=== PATIENT | female | born 1955 | race Caucasian/White ===

== ENCOUNTER 2023-12-21 12:03 | Outpatient (REF) | payer MEDICARE, SELFPAY ==
--- NOTE | ~2023-12-21 | XR_ITS ---
EXAMINATION: XR KNEE, LEFT XR KNEE AP STANDING CLINICAL INFORMATION: Left knee pain COMPARISON: None TECHNIQUE: Lateral axial views of the left knee were obtained. AP bilateral standing view of the knees was obtained. FINDINGS: There is bony demineralization. The bilateral lateral and medial joint space compartments are well-maintained, as is the left patellofemoral compartment. There is mild peripheral osteophyte formation of the bilateral medial joint space compartments. There is mild peripheral osteophyte formation of the left femoral joint space compartment. No fracture or dislocation is seen. No varus or valgus configuration is seen bilaterally. There are loose bodies noted within the posterior left knee joint space. There is no left knee joint effusion. XR/XR knee LT 3V IMPRESSION: 1. There is mild osteoarthritic change of the medial and patellofemoral joint space compartments of the left knee. 2. Small loose bodies are seen posteriorly within the left knee joint space. 3. There is mild osteoarthritic change of the medial joint space compartment of the right knee. Electronically signed by: Amarjit High MD 01/19/2024 08:12 PM EDT
== END 2023-12-21 12:04 | disposition home or self-care (01) ==
LOC: HO.HOSX 12:03
PROVIDERS: Visit Provider Orthopaedic Surgery
DX: M25.562 Pain in left knee (principal); M17.12 Unilateral primary osteoarthritis, left knee
CPT/HCPCS: 20610; 73562; 99202; J0665; J1100

== ENCOUNTER 2023-12-21 12:43 | Outpatient (AMB) | payer MEDICARE, SELFPAY ==
[2023-12-21 12:57] VITALS: BMI 35.5
--- NOTE | 2023-12-21 12:57 | MHC.OFFVIS ---
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 Patient reports that she has had pain in the left knee for about 1 year now. She had an injection done in February in the left knee which did help. She explains that she has a pain in the joing as well was a muscle pain along the medial aspect of the pain. She takes Tylenol which does help temporarily. Pain increases with prolonged standing and walking. 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 Patient reports that she has had pain in the left knee for about 1 year now. She had an injection done in February in the left knee which did help. She explains that she has a pain in the joint as well was a muscle pain along the medial aspect of the pain. She takes Tylenol which does help temporarily. Pain increases with prolonged standing and walking. She can walk for long distances but is uncomfortable. The last injection she had lasted about 6 months. Physical Exam Vital Signs: BMI result Body Mass Index 35.5 Extrem Other: Mild effusion 5-125 deg motion ttp medial joint line Office Procedures Joint Injection/Aspiration Joint Injection/Aspiration Details: Injected 1 mL of Decadron and 3 mL 1% lidocaine and 3 mL of 0.25% Marcaine. Site was prepped using aseptic technique. Patient tolerated the procedure well. Primary Site: left knee Approach Used: anterolateral Coding 74696 - Large joint Procedure code (CPT) selection complete Results Reviewed Results Reviewed: Injected 1 mL of Decadron and 3 mL 1% lidocaine and 3 mL of 0.25% Marcaine. Site was prepped using aseptic technique. Patient tolerated the procedure well. Moderate tibiofemoral OA< severe PF OA. Assessment & Plan Assessment & Plan (1) Arthritis of left knee: Code(s): M17.12 - Unilateral primary osteoarthritis, left knee Category: Medical Plan: Medial and anterior compartment OA that is limiting. She experienced significant improvement after he last injection and we injected her left knee. She can follow up in 3 months or sooner if pain persists and we will consider DUARTE. Orders: Orders XR knee LT 3V Today M25.562 - Pain in left knee Coding Level of Care Code New Pt Level 3 (18782) Diagnoses Arthritis of left knee M17.12 CPT Codes Coding - 35058 Large joint: 79784 - Large joint ([id number])
== END 2023-12-21 13:31 | disposition home or self-care (01) ==
PROVIDERS: PCP Internal Medicine; Visit Provider Orthopaedic Surgery
DX: M17.12 Unilateral primary osteoarthritis, left knee (principal)
CPT/HCPCS: 20610; 99203

== ENCOUNTER 2024-07-07 10:28 | Outpatient (AMB) | payer MEDICARE, SELFPAY ==
--- NOTE | 2024-07-07 10:29 | MHC.OFFVIS ---
Intake Visit Reasons: OV- LT Knee OA Intake Note: Gela is a 69 year old female who presents today for a follow up of her Left Knee OA. Last injection was administered to the left knee on 12/21/23. Patient reports that she is not looking for another injection today. She explains that her pain is in the posterior aspect of the knee which radiates from the left side of her lower back. Denies numbness and tingling. Has not tried PT. Allergies No Known Allergies Allergy (Verified 07/07/24 10:34) HPI HPI OV- LT Knee OA: Details: Gela is a 69 year old female who presents today for a follow up of her Left Knee OA. Last injection was administered to the left knee on 12/21/23. Patient reports that she is not looking for another injection today. She explains that her pain is in the posterior aspect of the knee which radiates from the left side of her lower back. Denies numbness and tingling. Physical Exam Extrem Other: ttp medial and distal hamstring. No knee pain with palpation or ROM Assessment & Plan Assessment & Plan (1) Arthritis of left knee: Code(s): M17.12 - Unilateral primary osteoarthritis, left knee Category: Medical Plan: Question hamstring/adductor pain vs atypical knee pain. Her knee feels better after most recent injection. Would like to try PT. No additional intervention warranted. Coding Level of Care Code Est Pt Level 3 (40597) Diagnoses Arthritis of left knee M17.12
--- OUTSIDE RECORDS SUMMARY | 2024-07-07 12:11 | XMS_ITS | Clinical Summary ---
Author Organization [facility] Address [address] [place] [address] Care Team Providers Care Director Zone Name Role Phone Mina Gonzalez MD Primary Care Provider Social History Tobacco Use Types Packs/Day Years Used Date Smoking Tobacco: Never Assessed Comments Unknown Sex and Gender Information Value Date Recorded Sex Assigned at Not on file Legal Sex Female 4:20 AM EST Gender Identity Not on file Sexual Orientation Not on file Last Filed Vital Signs Vital Sign Reading Time Taken Comments Blood Pressure - - Pulse - - Temperature - - Respiratory Rate - - Oxygen Saturation - - Inhaled Oxygen Concentration - - Weight 86.1 kg (189 lb 12.8 oz) 12/02/2022 8:44 AM EDT Height 144.8 cm (4' 9 ) 12/02/2022 8:44 AM EDT Body Mass Index 41.07 12/02/2022 8:44 AM EDT Plan of Treatment Health Maintenance Due Date Last Done Comments DTaP,Tdap,and Td Vaccines (1 - Tdap) 01/18/1972 Pneumococcal Vaccine: 50+ Years (1 of 1 - PCV) 2003 Zoster Vaccines (1 of 2) 2003 RSV Immunization Patients 60 + Years Old (1 - Risk 60-74 years 1-dose series) 2013 Cholesterol Screening (Lipid Panel) 04/13/2022 Colorectal Cancer Screening: Colonoscopy 04/13/2022 Depression Screening 04/13/2022 Falls Risk Assessment 04/13/2022 Hepatitis C Screening 04/13/2022 Osteoporosis Screening (Bone Density Screening) 04/13/2022 Social Influencers of Health Screening 04/13/2022 Hypertension/CHF/CAD Annual BMP Blood Test 06/25/2023 COVID-19 Vaccine ( - 2023-2 5 season) 2024 Influenza Vaccine (#1) 2024 Breast Cancer Screening 03/12/2024 03/12/20, 01/24/2021, 04/21/2018 HIB Vaccines Aged Out No longer eligi ble based on patient's age to complete this topic HPV Vaccines Aged Out No longer eligi ble based on patient's age to complete this topic Hepatitis A Vaccines Aged Out No long er eligible based on patient's age to complete this topic Hepatitis B Vaccines Aged Out No long er eligible based on patient's age to complete this topic IPV Vaccines Aged Out No longer eligi ble based on patient's age to complete this topic MMR Vaccines Aged Out No longer eligi ble based on patient's age to complete this topic Meningococcal ACWY Vaccine Aged Out N o longer eligible based on patient's age to complete this topic Meningococcal B Vacine Aged Out No lo nger eligible based on patient's age to complete this topic RSV Immunization Patients Under 20 months Aged Out No longer eligible b ased on patient's age to complete this topic Varicella Vaccines Aged Out No longer eligible based on patient's age to complete this topic Procedures Procedure Name Priority Date/Time Associated Diagnosis Comments [facility] SCREENING DIGITAL Routine 03/12/2022 4:34 PM EDT Encounter for screening mammogram for malignant neoplasm of breast from Last 3 Months or Most Recently Relevant to Health Maintenance Results * [facility] SCREENING DIGITAL (03/12/2022 4:34 PM EDT) Anatomical Region Laterality Modality Mammography 03/12/2022 7:24 AM EDT Narrative 03/12/2022 4:34 PM EDT [facility] Diagnostic Imaging Department [address] [place] [id number] Patient: ??LYDIA CORBETT ?/Age/Sex: 1955 - 67 - F Unit#: ??[id number] ? Location/Status: ??SPDIMAM/REG CLI ? Mnemonic/Ordering Site: ??DIGSC/SPMAM Ordering Physician: ??MINA GONZALEZ MD Basil Screening Digital - 03/12/22807 History: Bilateral breast cancer screening. Technique: ??Digital mammography. Conventional CC and MLO projections with tomosynthesis MLO views and computer aided detection. Comparison: [facility] 01/24/2021, dating back to 04/17/2011. Findings: ?? Breast tissue consists of fatty and fibroglandular elements (category b density) bilaterally (as calculated by [employer] software). There is no suspicious group of microcalcifications, mass, architectural distortion or suspicious change in breast tissue density. Impression: No evidence of malignancy. BIRADS category 1; negative study, 3341F 39135, 17648 Note: Patient information entered into a reminder system with a target due date for the next mammogram: ??CPT II 7025F Dictating Physician: ??HORACIO GONZALEZ MD Electronically Signed by: ??HORACIO GONZALEZ MD Dic Date/Time: ??03/12/22 1628 Sign date/Time: ??03/12/22 1634 Procedure Note Horacoi Gonzalez MD - 06/12/2023 [facility] Diagnostic Imaging Department [address] [place] [address] [id number] Patient: LYDIA CORBETT/Age/Sex: 1955 - 67 - F Unit#: [id number] Location/Status: SPDIMAM/REG CLI Mnemonic/Ordering Site: [facility] Ordering Physician: MINA GONZALEZ MD Basil Screening Digital - 03/12/22 - 807 History: Bilateral breast cancer screening. Technique: Digital mammography. Conventional CC and MLO projectionswith tomosynthesis MLO views and computer aided detection. Comparison: [facility] 01/24/2021, dating back to 04/17/2011. Findings: Breast tissue consists of fatty and fibroglandular elements (category b density) bilaterally (as calculated by [employer]). There is no suspicious group of microcalcifications, mass, architectural distortion or suspicious change in breast tissue density. Impression: No evidence of malignancy. BIRADS category 1; negative study, 3341F 48840, 16442 Note: Patient information entered into a reminder system with a target duedate for the next mammogram: CPT II 7025F Dictating Physician: HORACIO GONZALEZ MD Electronically Signed by: HORACIO GONZALEZ MD Dic Date/Time: 03/12/22 1628 Sign date/Time: 03/12/22 1634 Mina Gonzalez MD IMG BI PROCEDURES Final Result from Last 3 Months or Most Recently Relevant to Health Maintenance Care Teams Director Zone Relationship Specialty Start Date End Date Mina Gonzalez MD [address] [place] [phone] PCP - General 10/28/22
== END 2024-07-07 10:43 | disposition home or self-care (01) ==
PROVIDERS: PCP Internal Medicine; Visit Provider Orthopaedic Surgery
DX: M17.12 Unilateral primary osteoarthritis, left knee (principal)
CPT/HCPCS: 99213

== ENCOUNTER → 2024-07-07 10:28 | Outpatient (BNVA) | payer MEDICARE, SELFPAY | PROVIDERS: PCP Internal Medicine; Visit Provider Orthopaedic Surgery | DX: M17.12 Unilateral primary osteoarthritis, left knee (principal) | CPT/HCPCS: 99212 ==

== ENCOUNTER 2024-09-13 10:00 | Outpatient (RCR) | payer MEDICARE, SELFPAY ==
--- NOTE | 2024-07-26 11:36 | MHC.PT.EP ---
[facility] [place] Office [place] Office [place] Office [address] Kota Bullock [address] [phone] F: [phone] F: [phone] F: [phone] F: [phone] Physical Therapy Plan of Care Date of Evaluation: 07/26/24 Date of Surgery: n/a Diagnosis: unilateral primary OA L knee Assessment: Patient is a 69 year old female presenting to PT with complaints of pain in her L knee. Pt reports onset of pain began 1 year ago due to insidiou onset. She presents today with impairments in pain, knee ROM, knee strength, hip strength, tenderness to palpation over bursa. 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 Pt expresses fpc goal of reducing pain, and is motivated to work towards this in PT. Clinical presentation today is most consistent with signs and sx associated with L knee pain and pt will benefit from skilled PT 2 week x 4 weeks to address the following problems and impairments noted upon evaluation: pain, knee ROM, knee strength, hip strength, tenderness to palpation over bursa. These problems limit the patient with the following functional activities: ambulating, stair negotiation, ADLs. The prescribed treatment plan of care is medically necessary. Co-morbidities of HTN were identified and taken into considerations of plan of care. Pt was educated on HEP, role of PT, prognosis, POC. Frequency and Duration: The patient will be seen 2 x week x 4 weeks Short Term Goals: Pt will demonstrate improved hip MMT strength by 1/3 grade in 2 weeks. Pt will demonstrate less tenderness to palpation over bursa in 2 weeks. Pt will demonstrate symmetrical knee ROM to 120 in 2 weeks. Correction Goals: Pt will demonstrate improved LEFI score by 9 points in 4 weeks for improved functional mobility. Pt will demonstrate ability to ambulate with min to no pain in 4 weeks for return to PLOF. Pt will demonstrate ability to negotiate stairs with min to no pain in 4 weeks for improved access to her home. Treatment Plan: Modalities to reduce pain, spasms and effusion. Manual therapy to restore motion and function. Therapeutic exercise to improve strength and flexibility. Neuromuscular re-education for posture and balance. Therapeutic activities to return to functional activities of daily living. Electronically signed by: Nubia Carlisle, PT, DPT, ATC Please sign and return to therapist. Thank you for your referral.
--- NOTE | 2024-09-13 10:45 | MHC.PT.DC ---
[facility] [place] [facility] [place] Office [place] Office [address] [phone] F: [phone] F: [phone] F: [phone] F: [phone] Physical Therapy Discharge Report Diagnosis: unilateral primary OA L knee Date of Surgery: n/a Date of Evaluation: 07/26/24 Date of Discharge: 09/13/24 Treatments to Date: 5 Cancellations to Date: 2 No Shows to Date: 0 Discharge Status: Achieved Goals Improved Function Independent with HEP Discharge Summary: 09/13/2024: Pt has made improvement in knee pain since start of care. She is feeling better overall and has made good progress towards her goals. At this time max benefits of PT have been provided and skilled PT is no longer indicated at this time. Recommend pt continue with HEP at home to maintain gains. She is in agreement with d/c today. Electronically signed by: Nubia Carlisle, PT, DPT, ATC Please sign and return to therapist. Thank you for your referral.
== END 2024-09-13 10:46 | disposition home or self-care (01) ==
LOC: HO.PTCHIC 10:00
PROVIDERS: PCP Internal Medicine; Visit Provider Orthopaedic Surgery
DX: M17.12 Unilateral primary osteoarthritis, left knee (principal)
CPT/HCPCS: 97110; 97161